=== PATIENT | male | born 1960 | race Caucasian/White ===

== ENCOUNTER 2017-01-31 18:22 | Inpatient (IN) | payer OTHER ==
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
--- NOTE | ~2017-01-31 | OP ---
Record Of Operation [facility] [address] [place]. [address] NAME: HANNAH ABREU : 56 STATUS : ADM Carisa PAT#: [id number] AGE: 56 ADM/REG DATE : 01/31/17 MR#: [id number] REPORT SERV DATE: 02/01/17 DICTATED BY: ZACARIAS CHAMPION DATE: 02/01/17 REPORT STATUS : Draft TRANSCRIBED BY: MODL DATE: 02/01/17 DATE OF PROCEDURE: 02/01/2017 PTCA REPORT INDICATION FOR THIS PROCEDURE: Acute coronary syndrome. PROCEDURE IN DETAIL: The patient had already been prepped and draped. A 6-Syriac sheath was placed in the right femoral artery from preceding cardiac catheterization. Moderate IV sedation was administered. A 6 JL5 coronary guiding catheter was advanced in the left coronary ostium. The left coronary artery injections confirmed the presence of a 75% stenosis of the mid LAD. A 0.014 Luge guidewire was passed into the distal LAD. A 3.5/16 Synergy stent was then deployed at up to 12 atmospheres pressure for 15 seconds in duration. The proximal portion of the stent was then dilated with a 3.5/12 NC Emerge balloon at up to 15 atmospheres of pressure for 15 seconds in duration. Intracoronary nitroglycerin was administered. Following removal of balloon and guidewire final, left coronary artery injection showed 0% residual stenosis at the site of stent implantation with JOSE grade 3 distal flow. Guiding catheter was removed. The sheath was left in place. There were no apparent complications. TOTAL CONTRAST USED: 210 mL. TOTAL RADIATION EXPOSURE: 971 mGy. ESTIMATED BLOOD LOSS: No significant blood loss occurred. IMPRESSION: Successful placement of drug-eluting stent in mid LAD. JOSS/BLAKE Zacarias Champion M.D., Darnell / [id number] CC: Zacarias Champion M.D., Tristan Simmons
--- NOTE | ~2017-01-31 | OP ---
Record Of Operation [facility] [address] [place]. [address] NAME: HANNAH ABREU : 56 STATUS : ADM Carisa PAT#: [id number] AGE: 56 ADM/REG DATE : 01/31/17 MR#: [id number] REPORT SERV DATE: 02/01/17 DICTATED BY: ZACARIAS CHAMPION DATE: 02/01/17 REPORT STATUS : Draft TRANSCRIBED BY: BLAKE DATE: 02/01/17 DATE OF PROCEDURE: 02/01/2017 REPORT TITLE: Cardiac Catheterization BODY AFTER REPORT TITLE: INDICATION FOR THIS PROCEDURE: Acute coronary syndrome. PROCEDURE IN DETAIL: The patient was prepped and draped in usual sterile fashion. Moderate IV sedation was administered. Adequate anesthesia was obtained over the right femoral vessels using lidocaine infiltration. Using the Seldinger technique, a 6-Romanian sheath was placed in the right femoral artery. A FL5 coronary catheter was advanced to the left coronary ostium. Left coronary artery injections were performed in multiple views. Left coronary catheter was then exchanged for a 6 FR4 coronary catheter, which was advanced to the right coronary ostium. Right coronary artery injections were then performed in the ADRIAN view. The right coronary catheter was exchanged for 6-Romanian pigtail catheter, which was advanced in the left ventricular cavity. Pressures were measured across the aortic valve and a left ventricular angiogram was obtained in the JACKSON projection. The pigtail catheter was removed. The sheath was left in place in anticipation of subsequent angioplasty. There were no apparent complications. RESULTS: 1. Pressures: The left ventricular end-diastolic pressure was 15 mmHg and no gradient was present across the aortic valve. 2. Left ventricular angiogram: The left ventricle contracted normally. Estimated ejection fraction of 65%. 3. Coronary arteriograms of the left main coronary artery were normal. Left anterior descending coronary artery has a 75% stenosis in its midportion. The ramus intermedius branch has luminal irregularities proximally, but no obstructive disease. The left circumflex coronary artery is a dominant vessel and is free of significant disease. The right coronary artery is a small nondominant vessel and is free of significant disease. IMPRESSION: 1. High-grade stenosis of mid left anterior descending. 2. Normal left ventricular contractility. PLAN: Proceed with stenting of mid LAD. JOSS/BLAKE Zacarias Champion M.D., F.EduardoCMillerC. [facility] [place] [address] [place]. [address] NAME: HANNAH ABREU : 56 STATUS : ADM Carisa PAT#: [id number] AGE: 56 ADM/REG DATE : 01/31/17 MR#: [id number] REPORT SERV DATE: 02/01/17 DICTATED BY: ZACARIAS CHAMPION DATE: 02/01/17 REPORT STATUS : Draft TRANSCRIBED BY: BLAKE DATE: 02/01/17 / [id number] CC: Zacarias Champion M.D., F.EduardoCMillerCANDRÉS WALLER
[2017-01-31 19:59] LABS: BASOPHILS 0.4 %; BASOPHILS ABSOLUTE 0.03 10/3/uL (0.0-0.16); EOSINOPHILS 1.5 %; EOSINOPHILS ABSOLUTE 0.11 10/3/uL (0.0-0.53); ER CBC TAT 0 Hrs 08 Mins; HEMATOCRIT 45.2 % (40.0-51.0); HEMOGLOBIN 15.4 g/dL (13.6-17.8); IMMATURE GRANULOCYTES 0.3 %; IMMATURE GRANULOCYTES ABSOLUTE 0.02 10/3/uL (0.0-0.11); LYMPHOCYTES 32.5 %; LYMPHOCYTES ABSOLUTE 2.46 10/3/uL (0.67-4.30); MEAN CORPUS HGB CONC 34.1 g/dL (32.0-36.0); MEAN CORPUSCULAR HEMOGLOB 29.2 pg (26.0-34.0); MEAN CORPUSCULAR VOLUME 85.6 fL (80-100); MEAN PLATELET VOLUME 9.2 fL (9.2-13.0); MONOCYTES 8.2 %; MONOCYTES ABSOLUTE 0.62 10/3/uL (0.21-1.20); NEUTROPHILS 57.1 %; NEUTROPHILS ABSOLUTE 4.32 10/3/uL (2.02-8.40); PLATELET COUNT 219 10/3/uL (150-400); RBC DISTRIBUTION WIDTH 12.9 % (12.0-16.0); RED CELL COUNT 5.28 10/6/uL (4.7-6.1); WHITE BLOOD CELLS 7.6 10/3/uL (4.5-10.5)
[2017-01-31 20:00] LABS: MANUAL DIFF NO %
[2017-01-31 20:10] LABS: INTERNATIONAL NORMAL RATI 1.1 UNITS (-); PARTIAL THROMBO TIME 27.8 SEC (22.5-37.2)
[2017-01-31] MEDS ORDERED: ASAEC PO (20:12)
[2017-01-31] MEDS ORDERED: ZESTRIL20 MG PO (20:12)
[2017-01-31 20:14] LABS: BUN (BLOOD UREA NITROGEN) 12 MG/DL (6-23); CALCIUM, SERUM 8.8 MG/DL (8.5-10.4); CHEST PAIN PROFILE TAT 0 Hrs 23 Mins; CHLORIDE, SERUM 102 MMOL/L (96-112); CO2 (CARBON DIOXIDE) 29 MMOL/L (24-34); CREATININE 1.33 MG/DL (0.70-1.30); GFR AFRICAN AMERICAN 68 ML/MIN (>=60); GFR NON AFRICAN AMERICAN 59 ML/MIN (>=60); GLUCOSE, SERUM 85 MG/DL (60-99); SODIUM, SERUM 139 MMOL/L (135-148); TROPONIN I <0.02 NG/ML (<0.05)
[2017-01-31] MEDS ORDERED: CONSTULOSE PO (20:23)
[2017-01-31] MEDS ORDERED: EFFEXOR XR150 MG PO (20:23)
[2017-01-31] MEDS ORDERED: TRAZ100 PO (20:26)
[2017-01-31] MEDS ORDERED: TEARS PURE OPH (20:27)
[2017-01-31] MEDS ORDERED: IBU600 PO (20:28)
[2017-02-01 03:53] LABS: BASOPHILS 0.3 %; BASOPHILS ABSOLUTE 0.02 10/3/uL (0.0-0.16); EOSINOPHILS ABSOLUTE 0.13 10/3/uL (0.0-0.53); HEMATOCRIT 41.5 % (40.0-51.0); HEMOGLOBIN 14.1 g/dL (13.6-17.8); IMMATURE GRANULOCYTES 0.3 %; IMMATURE GRANULOCYTES ABSOLUTE 0.02 10/3/uL (0.0-0.11); LYMPHOCYTES 43.9 %; MEAN CORPUSCULAR HEMOGLOB 29.1 pg (26.0-34.0); MEAN CORPUSCULAR VOLUME 85.7 fL (80-100); MEAN PLATELET VOLUME 9.3 fL (9.2-13.0); MONOCYTES 8.9 %; MONOCYTES ABSOLUTE 0.59 10/3/uL (0.21-1.20); NEUTROPHILS 44.6 %; NEUTROPHILS ABSOLUTE 2.95 10/3/uL (2.02-8.40); PLATELET COUNT 213 10/3/uL (150-400); RBC DISTRIBUTION WIDTH 12.9 % (12.0-16.0); RED CELL COUNT 4.84 10/6/uL (4.7-6.1); WHITE BLOOD CELLS 6.6 10/3/uL (4.5-10.5)
[2017-02-01 03:55] LABS: MANUAL DIFF NO %
[2017-02-01 04:11] LABS: CHOL/HDL RATIO(NOT ORDER) 3.3 (0-5); CHOLESTEROL 155 MG/DL (< 200); HDL CHOLESTEROL 47 MG/DL (> 39); LDL CHOLESTEROL 80 MG/DL (< 130); NON-HDL CHOLESTEROL 108 MG/DL (< 160); SGPT(ALT) 29 U/L (5-65); TRIGLYCERIDE 140 MG/DL (< 150); TROPONIN I <0.02 NG/ML (<0.05)
[2017-02-02 04:26] LABS: BASOPHILS 0.3 %; BASOPHILS ABSOLUTE 0.02 10/3/uL (0.0-0.16); EOSINOPHILS 0.8 %; EOSINOPHILS ABSOLUTE 0.06 10/3/uL (0.0-0.53); HEMATOCRIT 40.1 % (40.0-51.0); HEMOGLOBIN 13.4 g/dL (13.6-17.8); IMMATURE GRANULOCYTES 0.4 %; IMMATURE GRANULOCYTES ABSOLUTE 0.03 10/3/uL (0.0-0.11); LYMPHOCYTES 27.9 %; LYMPHOCYTES ABSOLUTE 2.12 10/3/uL (0.67-4.30); MEAN CORPUS HGB CONC 33.4 g/dL (32.0-36.0); MEAN CORPUSCULAR HEMOGLOB 28.5 pg (26.0-34.0); MEAN CORPUSCULAR VOLUME 85.1 fL (80-100); MEAN PLATELET VOLUME 9.1 fL (9.2-13.0); MONOCYTES 8.4 %; MONOCYTES ABSOLUTE 0.64 10/3/uL (0.21-1.20); NEUTROPHILS 62.2 %; NEUTROPHILS ABSOLUTE 4.73 10/3/uL (2.02-8.40); PLATELET COUNT 219 10/3/uL (150-400); RBC DISTRIBUTION WIDTH 12.8 % (12.0-16.0); RED CELL COUNT 4.71 10/6/uL (4.7-6.1); WHITE BLOOD CELLS 7.6 10/3/uL (4.5-10.5)
[2017-02-02 04:27] LABS: MANUAL DIFF NO %
[2017-02-02 04:38] LABS: CALCIUM, SERUM 8.5 MG/DL (8.5-10.4); CHLORIDE, SERUM 106 MMOL/L (96-112); CO2 (CARBON DIOXIDE) 26 MMOL/L (24-34); CREATININE 1.12 MG/DL (0.70-1.30); GFR AFRICAN AMERICAN 83 ML/MIN (>=60); GFR NON AFRICAN AMERICAN 72 ML/MIN (>=60); GLUCOSE, SERUM 96 MG/DL (60-99); SODIUM, SERUM 142 MMOL/L (135-148)
[2017-02-02 04:42] LABS: BUN (BLOOD UREA NITROGEN) 22 MG/DL (6-23)
[2017-02-02] MEDS ORDERED: ASAB PO (12:40)
[2017-02-02] MEDS ORDERED: LOP25 PO (12:41)
[2017-02-02] MEDS ORDERED: BRILINTA90 MG PO (12:41)
== END 2017-02-02 12:30 | disposition home or self-care (01) | DRG 247 ==
LOC: ER 18:22 → CDU1 21:56 → CDU2 23:05 → SSU2 02-01 10:24 → CVICU 02-01 12:02
PROVIDERS: Emergency Medicine; Internal Medicine Interventional Cardiology
PROC: 4A023N7 Measurement of Cardiac Sampling and Pressure, Left Heart, Percutaneous Approach (ICD-10-PCS; principal; 2017-02-01)
PROC: 027034Z Dilation of Coronary Artery, One Artery with Drug-eluting Intraluminal Device, Percutaneous Approach (ICD-10-PCS; 2017-02-01)
PROC: B2111ZZ Fluoroscopy of Multiple Coronary Arteries using Low Osmolar Contrast (ICD-10-PCS; 2017-02-01)
PROC: B2151ZZ Fluoroscopy of Left Heart using Low Osmolar Contrast (ICD-10-PCS; 2017-02-01)
DX: I25.110 Atherosclerotic heart disease of native coronary artery with unstable angina pectoris (principal); I10 Essential (primary) hypertension; Z79.899 Other long term (current) drug therapy; Z82.49 Family history of ischemic heart disease and other diseases of the circulatory system
CPT/HCPCS: 71010; 80048; 80061; 82962; 83735; 83880; 84460; 84484; 85025; 85610; 85730; 93005; 93458; 99152; 99153; 99291; A9270-GY; C1725; C1769; C1874; C1887; C9600; J0583; J1170; J2250; J2550; J3010; Q9967

== ENCOUNTER 2017-02-07 19:15 | Observation (INO) | payer OTHER ==
--- NOTE | ~2017-02-07 | DS ---
Discharge Summary [place] [address] [place]. [address] NAME: HANNAH ABREU : 56 STATUS : DIS Carisa PAT#: [id number] AGE: 56 ADM/REG DATE : 02/07/17 MR#: [id number] REPORT SERV DATE: 02/11/17 DICTATED BY: WILLY POLO DATE: 02/10/17 REPORT STATUS : Draft TRANSCRIBED BY: MODL DATE: 02/10/17 ADMISSION DATE: 02/07/2017 DISCHARGE DATE: 02/10/2017 DISCHARGE DIAGNOSES: 1. Upper gastrointestinal bleed and melena. 2. Duodenal ulcer. 3. Anemia of acute blood loss. Most recent H and H 10.4 and 30.1. 4. Acute kidney injury on chronic kidney disease, stage II. Most recent creatinine 1.31. 5. Hypothyroidism, new. TSH 5.410. Synthroid started. 6. Recent heart catheterization on 02/01/2017 with drug-eluting stent. 7. Elevated lipase. DISCHARGE MEDICATIONS: Aspirin 81 mg daily, vitamin D 5000 units daily, doxycycline 100 mg daily, Plavix 75 mg daily, ferrous sulfate 300 mg twice a day, Synthroid 25 mcg daily, metoprolol 25 mg twice a day, Leopold-3 fatty acid 1000 mg daily, Protonix 40 mg twice a day, Carafate 1 g p.o. three times a day, lisinopril 5 mg daily, Krill oil soft gel daily, and biotin 5 mg daily. HISTORY OF PRESENT ILLNESS: 56-year-old, white male, presented with melena and acute blood loss anemia. Please see initial H and P of Dr. Jem Fajardo. This patient is admitted to the Hospitalist Service for further evaluation and treatment. CONSULTANTS DURING THIS ADMISSION: 1. Cardiology, Zacarias Eden M.D., [facility]. 2. GI, Wilfredo Cerrato M.D. PROCEDURES AND IMAGING DURING THIS ADMISSION: CTA of the chest that showed no evidence of pulmonary embolus. Upper normal to mildly enlarged heart size, coronary artery stent in LAD and a mild fusiform aneurysmal change, mid ascending thoracic aorta, 3.[address] of the abdomen and pelvis. Upper GI endoscopy that was performed on 02/08/2017 showing one nonbleeding cratered duodenal ulcer, lesion 10 mm in largest dimension. Medium-sized hiatal hernia. Schatzki ring in the cricopharyngeus and otherwise gastrium and duodenum are normal. HOSPITAL COURSE: Beginning on 02/08/2017, the patient was feeling some better. His H and H did trend downward from 10.3 and 30.2; however, falling to 7.9 and 24.1. He got 2 units of packed red blood cells transfused and was seen by GI and underwent the above described endoscopy. Initially, his Brilinta had been placed on hold and he had been placed on a PPI drip of Protonix and his H and Hs were followed closely. Since EGD, his H and H have been very stable. He has not had any more significant melena and has had no abdominal pain, has been able to slowly advance his diet and has ambulated in the room. Curiously, he had a slightly elevated lipase which has been followed and he will follow up with Dr. Cerrato in two to three weeks as an outpatient. Cardiology wished him to start on Plavix and aspirin as an outpatient and prescriptions have been written and to discontinue the Brilinta. In further talking with the patient, I have instructed him to stop his Effexor Discharge Summary [address] [place]. [address] NAME: HANNAH ABREU : 56 STATUS : DIS Carisa PAT#: [id number] AGE: 56 ADM/REG DATE : 02/07/17 MR#: [id number] REPORT SERV DATE: 02/11/17 DICTATED BY: WILLY POLO DATE: 02/10/17 REPORT STATUS : Draft TRANSCRIBED BY: MODL DATE: 02/10/17 and trazodone as Effexor does have slight risk for pancreatitis plus he was not taking them plus he did not feel a strong benefit from the Effexor or the trazodone either. He also had a TSH come back elevated during this admission and Synthroid at a low-dose has been initiated with instruction to follow up and have a TSH rechecked in six weeks and I have also instructed him to follow up with his primary care given this finding of a small thoracic aortic aneurysm as imaging would need to be done at a later date. I have also instructed him to stop all NSAID therapy as the patient had been taking Aleve and Motrin both at home. I have discussed case extensively with the patient and his at bedside. They are in agreement with this plan going forward. So the patient was felt safe for discharge home on 02/10/2017 with the above medications and recommendations as stated above. Please note, greater 30 minutes was spent on this discharge for medication teaching, followup planning, and further disposition. JHONY/MODL Willy Polo NP / [id number] CC: Yousif Figueredo M.D.
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
--- NOTE | ~2017-02-07 | EGD ---
EGD REPORT [facility] [address] [place] [address] NAME: HANNAH ABREU : 56 STATUS : ADM Carisa PAT#: [id number] AGE: 56 ADM/REG DATE : 02/07/17 MR#: [id number] REPORT SERV DATE: 02/08/17 DICTATED BY: JORDYN SINGH DATE: 02/08/17 REPORT STATUS : Draft TRANSCRIBED BY: [facility] DATE: 02/08/17 End[facility] Center Patient Name: Hannah Abreu Date of : 1960 Attending MD: JORDYN SINGH MD Procedure Date No Time: 02/08/2017 Procedure: Upper GI endoscopy Indications: Acute post hemorrhagic anemia, Iron deficiency anemia, Melena Medicines: Propofol total dose 300 mg IV Complications: No immediate complications. Procedure: After obtaining informed consent, the endoscope was passed under direct vision. Throughout the procedure, the patient's blood pressure, pulse, and oxygen saturations were monitored continuously. The GIF [id number] was introduced through the mouth, and advanced to the third part of duodenum. The patient tolerated the procedure well. Findings: The ampulla and 2nd part of the duodenum were normal. One non-bleeding cratered duodenal ulcer with no stigmata of bleeding was found in the duodenal bulb. The lesion was 10 mm in largest dimension. The cardia, gastric fundus, gastric body, anterior wall of the stomach, greater curvature of the stomach, lesser curvature of the stomach, posterior wall of the stomach, incisura, gastric antrum and pylorus were normal. A medium-sized hiatus hernia was present. A [Severity of Ring] Schatzki ring (acquired) was found [Site]. The cricopharyngeus, upper third of the esophagus, middle third of the esophagus and lower third of the esophagus were normal. Impression: - Normal ampulla and 2nd part of the duodenum. - One duodenal ulcer with clean base. No Bleeding No Biopsy due to Anticoagulant Status - Normal cardia, gastric fundus, gastric body, anterior wall of the stomach, greater curvature of the stomach, lesser curvature of the stomach, posterior wall of the stomach, incisura, antrum and pylorus. - Hiatus hernia. - Schatzki ring. - Normal cricopharyngeus, upper third of esophagus, middle third of esophagus and lower third of esophagus. EGD REPORT [address] [address] NAME: HANNAH ABREU : 56 STATUS : ADM Carisa PAT#: [id number] AGE: 56 ADM/REG DATE : 02/07/17 MR#: [id number] REPORT SERV DATE: 02/08/17 DICTATED BY: JORDYN SINGH DATE: 02/08/17 REPORT STATUS : Draft TRANSCRIBED BY: [employer] DATE: 02/08/17 Recommendation: - Return patient to hospital [facility] for ongoing care. - Continue present medications. Procedure Code(s): --- Professional --- 75758, Esophagogastroduodenoscopy, flexible, transoral; diagnostic, including collection of specimen(s) by brushing or washing, when performed (separate procedure) Diagnosis Code(s): --- Professional --- K26.9, Duodenal ulcer, unspecified as acute or chronic, without hemorrhage or perforation K44.9, Diaphragmatic hernia without obstruction or gangrene K22.2, Esophageal obstruction D62, Acute posthemorrhagic anemia D50.9, Iron deficiency anemia, unspecified K92.1, Melena CPT copyright 2013 [employer]. All rights reserved. The codes documented in this report are preliminary and upon forensic computer examiner review may be revised to meet current compliance requirements. Jordyn Singh MD JORDYN SINGH MD 02/08/2017 6:43 PM This report has been signed electronically. Number of Addenda: 0 Note Initiated On: 02/08/2017 6:01 PM Scope Withdrawal Time 0 hours 0 minutes 0 seconds [address] [place] [address]
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
[2017-02-07 19:11] LABS: BASOPHILS 0.4 %; BASOPHILS ABSOLUTE 0.04 10/3/uL (0.0-0.16); EOSINOPHILS 0.4 %; EOSINOPHILS ABSOLUTE 0.04 10/3/uL (0.0-0.53); ER CBC TAT 0 Hrs 08 Mins; HEMATOCRIT 30.2 % (40.0-51.0); HEMOGLOBIN 10.3 g/dL (13.6-17.8); LYMPHOCYTES 29.6 %; MANUAL DIFF NO %; MEAN CORPUS HGB CONC 34.1 g/dL (32.0-36.0); MEAN CORPUSCULAR HEMOGLOB 29.3 pg (26.0-34.0); MEAN CORPUSCULAR VOLUME 85.8 fL (80-100); MEAN PLATELET VOLUME 9.7 fL (9.2-13.0); MONOCYTES 6.7 %; MONOCYTES ABSOLUTE 0.66 10/3/uL (0.21-1.20); NEUTROPHILS 61.9 %; NEUTROPHILS ABSOLUTE 6.05 10/3/uL (2.02-8.40); NUCLEATED RED BLOOD CELLS 2.7 /100WBC (0-0); PLATELET COUNT 414 10/3/uL (150-400); RBC DISTRIBUTION WIDTH 14.9 % (12.0-16.0); RED CELL COUNT 3.52 10/6/uL (4.7-6.1); WHITE BLOOD CELLS 9.8 10/3/uL (4.5-10.5)
[~2017-02-07 19:15] MED LIST: ASAB PO; ASAEC PO; BRILINTA90 MG PO; CONSTULOSE PO; EFFEXOR XR150 MG PO; IBU600 PO; LOP25 PO; TEARS PURE OPH; TRAZ100 PO; ZESTRIL20 MG PO
[2017-02-07 19:16] LABS: INTERNATIONAL NORMAL RATI 1.1 UNITS (-); PROTIME (NOT ORD) 13.6 SEC (12.0-14.5)
[2017-02-07 19:24] LABS: ALBUMIN 3.6 G/DL (3.5-5.0); ALKALINE PHOSPHATASE 77 U/L (45-117); CALCIUM, SERUM 8.8 MG/DL (8.5-10.4); CHEST PAIN PROFILE TAT 0 Hrs 21 Mins; CHLORIDE, SERUM 104 MMOL/L (96-112); CO2 (CARBON DIOXIDE) 24 MMOL/L (24-34); CREATININE 1.54 MG/DL (0.70-1.30); DIRECT BILIRUBIN 0.1 MG/DL (0.0-0.4); GFR AFRICAN AMERICAN 57 ML/MIN (>=60); GFR NON AFRICAN AMERICAN 49 ML/MIN (>=60); INDIRECT BILIRUBIN(NOT ORDER) 0.4 MG/DL (0.1-0.9); POTASSIUM, SERUM 3.7 MMOL/L (3.5-5.3); SGOT(AST) 26 U/L (5-40); SGPT(ALT) 40 U/L (5-65); SODIUM, SERUM 140 MMOL/L (135-148); TOTAL BILIRUBIN 0.5 MG/DL (0-1.2); TOTAL PROTEIN 7.3 G/DL (6.0-8.5); TROPONIN I <0.02 NG/ML (<0.05)
[2017-02-07 19:25] LABS: BUN (BLOOD UREA NITROGEN) 14 MG/DL (6-23); GLUCOSE, SERUM 116 MG/DL (60-99)
[2017-02-07] MEDS ORDERED: BRILINTA90 MG PO (20:00)
[2017-02-07] MEDS ORDERED: ASAB PO (20:00)
[2017-02-07] MEDS ORDERED: PRIN10 PO (20:00)
[2017-02-07] MEDS ORDERED: EFFEX75 PO (20:01)
[2017-02-07] MEDS ORDERED: MONODOX100 MG PO (20:01)
[2017-02-07] MEDS ORDERED: LOP25 PO (20:01)
[2017-02-07] MEDS ORDERED: BIOTIN5 MG PO (20:02)
[2017-02-07] MEDS ORDERED: FISH-EPA1000 MG PO (20:02)
[2017-02-07] MEDS ORDERED: D 5000 PO (20:02)
[2017-02-07] MEDS ORDERED: KRILLOIL PO (20:02)
[2017-02-07] MEDS ORDERED: TRAZ100 PO (20:03)
[2017-02-08 09:30] LABS: INTERNATIONAL NORMAL RATI 1.1 UNITS (-); PARTIAL THROMBO TIME 25.2 SEC (22.5-37.2); PROTIME (NOT ORD) 14.1 SEC (12.0-14.5)
[2017-02-08 09:39] LABS: BASOPHILS 0.7 %; BASOPHILS ABSOLUTE 0.05 10/3/uL (0.0-0.16); EOSINOPHILS 0.7 %; EOSINOPHILS ABSOLUTE 0.05 10/3/uL (0.0-0.53); IMMATURE GRANULOCYTES 0.8 %; IMMATURE GRANULOCYTES ABSOLUTE 0.06 10/3/uL (0.0-0.11); LYMPHOCYTES 29.7 %; LYMPHOCYTES ABSOLUTE 2.21 10/3/uL (0.67-4.30); MEAN CORPUS HGB CONC 32.4 g/dL (32.0-36.0); MEAN CORPUSCULAR HEMOGLOB 28.6 pg (26.0-34.0); MEAN CORPUSCULAR VOLUME 88.3 fL (80-100); MEAN PLATELET VOLUME 9.1 fL (9.2-13.0); MONOCYTES 10.1 %; MONOCYTES ABSOLUTE 0.75 10/3/uL (0.21-1.20); NEUTROPHILS ABSOLUTE 4.31 10/3/uL (2.02-8.40); NUCLEATED RED BLOOD CELLS 1.1 /100WBC (0-0); PLATELET COUNT 309 10/3/uL (150-400); RED CELL COUNT 2.83 10/6/uL (4.7-6.1); WHITE BLOOD CELLS 7.4 10/3/uL (4.5-10.5)
[2017-02-08 09:44] LABS: BUN (BLOOD UREA NITROGEN) 13 MG/DL (6-23); CALCIUM, SERUM 7.9 MG/DL (8.5-10.4); CHLORIDE, SERUM 108 MMOL/L (96-112); CO2 (CARBON DIOXIDE) 25 MMOL/L (24-34); CPK 28 U/L (0-200); CREATININE 1.39 MG/DL (0.70-1.30); GFR AFRICAN AMERICAN 64 ML/MIN (>=60); GFR NON AFRICAN AMERICAN 55 ML/MIN (>=60); GLUCOSE, SERUM 111 MG/DL (60-99); POTASSIUM, SERUM 3.8 MMOL/L (3.5-5.3); SGOT(AST) 19 U/L (5-40); SGPT(ALT) 30 U/L (5-65); SODIUM, SERUM 142 MMOL/L (135-148); TOTAL BILIRUBIN 0.5 MG/DL (0-1.2); TROPONIN I <0.02 NG/ML (<0.05)
[2017-02-08 09:45] LABS: ALBUMIN 2.8 G/DL (3.5-5.0); ALKALINE PHOSPHATASE 62 U/L (45-117); CK-MB < 0.5 NG/ML; GLOBULIN 2.9 G/DL (2.5-4.1); TOTAL PROTEIN 5.7 G/DL (6.0-8.5)
[2017-02-08 09:47] LABS: HEMOGLOBIN 8.1 g/dL (13.6-17.8)
[2017-02-08 09:48] LABS: MANUAL DIFF NO %
[2017-02-08 11:48] LABS: HEMATOCRIT 24.1 % (40.0-51.0); HEMOGLOBIN 7.9 g/dL (13.6-17.8)
[2017-02-08 22:58] LABS: HEMATOCRIT 32.1 % (40.0-51.0); HEMOGLOBIN 10.8 g/dL (13.6-17.8)
[2017-02-09 06:17] LABS: BASOPHILS 0.5 %; BASOPHILS ABSOLUTE 0.03 10/3/uL (0.0-0.16); EOSINOPHILS 0.5 %; EOSINOPHILS ABSOLUTE 0.03 10/3/uL (0.0-0.53); HEMATOCRIT 29.6 % (40.0-51.0); HEMOGLOBIN 9.8 g/dL (13.6-17.8); IMMATURE GRANULOCYTES 0.4 %; IMMATURE GRANULOCYTES ABSOLUTE 0.02 10/3/uL (0.0-0.11); LYMPHOCYTES 35.3 %; LYMPHOCYTES ABSOLUTE 1.93 10/3/uL (0.67-4.30); MEAN CORPUS HGB CONC 33.1 g/dL (32.0-36.0); MEAN CORPUSCULAR HEMOGLOB 29.2 pg (26.0-34.0); MEAN CORPUSCULAR VOLUME 88.1 fL (80-100); MEAN PLATELET VOLUME 9.4 fL (9.2-13.0); MONOCYTES 8.4 %; MONOCYTES ABSOLUTE 0.46 10/3/uL (0.21-1.20); NEUTROPHILS 54.9 %; NEUTROPHILS ABSOLUTE 2.99 10/3/uL (2.02-8.40); PLATELET COUNT 269 10/3/uL (150-400); RBC DISTRIBUTION WIDTH 14.9 % (12.0-16.0); RED CELL COUNT 3.36 10/6/uL (4.7-6.1); WHITE BLOOD CELLS 5.5 10/3/uL (4.5-10.5)
[2017-02-09 06:19] LABS: A/G RATIO 0.9 (0.7-1.9); ALBUMIN 2.6 G/DL (3.5-5.0); ALKALINE PHOSPHATASE 60 U/L (45-117); BUN (BLOOD UREA NITROGEN) 11 MG/DL (6-23); CALCIUM, SERUM 7.9 MG/DL (8.5-10.4); CHLORIDE, SERUM 108 MMOL/L (96-112); CO2 (CARBON DIOXIDE) 23 MMOL/L (24-34); CREATININE 1.26 MG/DL (0.70-1.30); GFR AFRICAN AMERICAN 72 ML/MIN (>=60); GFR NON AFRICAN AMERICAN 62 ML/MIN (>=60); GLOBULIN 2.8 G/DL (2.5-4.1); POTASSIUM, SERUM 3.8 MMOL/L (3.5-5.3); SGPT(ALT) 26 U/L (5-65); SODIUM, SERUM 142 MMOL/L (135-148); TOTAL BILIRUBIN 0.8 MG/DL (0-1.2); TOTAL PROTEIN 5.4 G/DL (6.0-8.5)
[2017-02-09 06:20] LABS: GLUCOSE, SERUM 87 MG/DL (60-99)
[2017-02-09 06:21] LABS: SGOT(AST) 24 U/L (5-40)
[2017-02-09 06:31] LABS: MANUAL DIFF NO %
[2017-02-09 09:55] LABS: HEMATOCRIT 27.7 % (40.0-51.0); HEMOGLOBIN 9.4 g/dL (13.6-17.8)
[2017-02-09 19:11] LABS: HEMOGLOBIN 10.3 g/dL (13.6-17.8)
[2017-02-09 19:12] LABS: HEMATOCRIT 30.6 % (40.0-51.0)
[2017-02-09 23:25] LABS: HEMATOCRIT 30.2 % (40.0-51.0); HEMOGLOBIN 10.4 g/dL (13.6-17.8)
[2017-02-10 01:57] LABS: HEMATOCRIT 30.1 % (40.0-51.0); HEMOGLOBIN 10.4 g/dL (13.6-17.8)
[2017-02-10 02:19] LABS: ALBUMIN 2.8 G/DL (3.5-5.0); ALKALINE PHOSPHATASE 67 U/L (45-117); BUN (BLOOD UREA NITROGEN) 8 MG/DL (6-23); CALCIUM, SERUM 8.3 MG/DL (8.5-10.4); CHLORIDE, SERUM 109 MMOL/L (96-112); CO2 (CARBON DIOXIDE) 26 MMOL/L (24-34); CREATININE 1.31 MG/DL (0.70-1.30); GFR AFRICAN AMERICAN 69 ML/MIN (>=60); GFR NON AFRICAN AMERICAN 60 ML/MIN (>=60); GLOBULIN 2.9 G/DL (2.5-4.1); GLUCOSE, SERUM 103 MG/DL (60-99); POTASSIUM, SERUM 3.7 MMOL/L (3.5-5.3); SGOT(AST) 18 U/L (5-40); SGPT(ALT) 24 U/L (5-65); SODIUM, SERUM 144 MMOL/L (135-148); TOTAL BILIRUBIN 0.4 MG/DL (0-1.2); TOTAL PROTEIN 5.7 G/DL (6.0-8.5)
[2017-02-10 02:22] LABS: PARTIAL THROMBO TIME > 150.0 SEC (22.5-37.2)
[2017-02-10 10:26] LABS: HEMOGLOBIN 11.4 g/dL (13.6-17.8)
[2017-02-10 10:28] LABS: HEMATOCRIT 34.3 % (40.0-51.0)
[2017-02-10 11:09] LABS: CHOL/HDL RATIO(NOT ORDER) 3.9 (0-5)
[2017-02-10 15:56] LABS: HEMATOCRIT 31.6 % (40.0-51.0); HEMOGLOBIN 10.8 g/dL (13.6-17.8)
[2017-02-10] MEDS ORDERED: PLAVIX PO (16:51)
[2017-02-10] MEDS ORDERED: FERROUS SULF325 M1 PO (16:54)
[2017-02-10] MEDS ORDERED: SYN.025B PO (16:55)
[2017-02-10] MEDS ORDERED: PROTONIX PO (16:57)
[2017-02-10] MEDS ORDERED: SUCR PO (16:58)
== END 2017-02-10 18:09 | disposition home or self-care (01) ==
LOC: ER 19:15 → 6NO 20:00
PROVIDERS: Hospitalist; Internal Medicine; Internal Medicine Gastroenterology; Nurse Practitioner Family
PROC: 0DJ08ZZ Inspection of Upper Intestinal Tract, Via Natural or Artificial Opening Endoscopic (ICD-10-PCS; principal; 2017-02-08 08:30)
DX: D62 Acute posthemorrhagic anemia (principal); K44.9 Diaphragmatic hernia without obstruction or gangrene; D50.9 Iron deficiency anemia, unspecified; K92.1 Melena; K26.9 Duodenal ulcer, unspecified as acute or chronic, without hemorrhage or perforation; K22.9 Disease of esophagus, unspecified; G47.33 Obstructive sleep apnea (adult) (pediatric); I25.10 Atherosclerotic heart disease of native coronary artery without angina pectoris; I71.2 Thoracic aortic aneurysm, without rupture; I12.9 Hypertensive chronic kidney disease with stage 1 through stage 4 chronic kidney disease, or unspecified chronic kidney disease; N17.9 Acute kidney failure, unspecified; N18.3 Chronic kidney disease, stage 3 (moderate); E03.9 Hypothyroidism, unspecified; R07.9 Chest pain, unspecified; E78.00 Pure hypercholesterolemia, unspecified; M06.9 Rheumatoid arthritis, unspecified; Z95.5 Presence of coronary angioplasty implant and graft; Z98.890 Other specified postprocedural states; Z88.8 Allergy status to other drugs, medicaments and biological substances
CPT/HCPCS: 36415; 36430; 43235; 71010; 71275; 74177; 80048; 80053 ×3; 80061; 80076; 82150; 82550; 82553; 83690 ×3; 83735 ×2; 83880; 84443; 84484 ×2; 85014 ×3; 85018 ×3; 85025 ×3; 85610 ×2; 85730 ×4; 86850; 86900; 86901; 86920; 93005; 96372; 96374; 96375; 96376 ×2; 99285; A9270 ×28; C9113 ×3; G0378; J0330; P9016; Q9967